=== PATIENT | female | born 1990 | race Hispanic/Latino ===

== ENCOUNTER 2022-08-10 09:16 | Emergency (ER) | payer OTHER ==
[~2022-08-10] VITALS: Ht 162.6 cm; Wt 121.7 kg
[2022-08-10] MEDS ORDERED: ACETAMINOPHEN 325 MG TAB PO ONE (10:15)
[2022-08-10] MEDS ORDERED: KETOROLAC TROMETHAMINE 30 MG/ML VIAL IV STA (10:21)
[2022-08-10] MEDS ORDERED: ACETAMINOPHEN 325 MG TAB ONE (10:40)
[2022-08-10] MEDS ORDERED: PANTOPRAZOLE SO40 MG PO (11:13)
== END 2022-08-10 11:25 | disposition home or self-care (01) ==
LOC: FSED 09:24
DX: R07.9 Chest pain, unspecified (principal); K21.9 Gastro-esophageal reflux disease without esophagitis
CPT/HCPCS: 71046; 80053; 81003; 81025; 82553; 84484; 85025; 93005; 99284; J1885